=== PATIENT | female | born 1945 | race African-American/Black ===

== ENCOUNTER → 2018-09-23 | Outpatient (CLI) | payer OTHER ==
[~2018-09-23] MED LIST: BACLOFEN 10 MG10 MG; BACLOFEN 10MG T10 M1 PO; BACLOFEN 10MG T10 MG PO; BREO ELLIPTA 11 EACH INH; CELEXA 20 MG TA20 M1 PO; CELEXA 20 MG TA20 MG PO; GRALISE600 MG; LEVAQUIN 500 M500 M2 PO; LISINOPRIL-HCT1 EAC1 PO; MOBIC15 MG PO; NEURONTIN 300300 M1; NEURONTIN600 MG PO; PERCOCET 5-3251 EACH PO; PREDNISONE10 MG PO; PROAIR HFA8.5 GM INH; PROTONIX40 M1 PO; SIMVASTATIN20 MG PO; VITAMIN D1000 UNI1 PO; ZESTRIL10 MG
--- NOTE | ~2018-09-23 | PAINCON ---
[address] [address] PAIN MANAGEMENT CONSULTATION Name: DIANA KULKARNI Room: [facility] Lopez.#: [id number] Admission: 09/23/18 Attend Phys: Lor Chery MD Discharge: Date of : 45 Report #: [id number] THIS REPORT FOR: //name// CC: George Chery DATE OF SERVICE: 09/23/2018 CHIEF COMPLAINT: Sciatic nerve pain. HISTORY OF PRESENT ILLNESS: The patient is a 72-year-old female who has been referred to the Pain Clinic for evaluation of chronic pain. The patient has been having pain in the lower portion of her back, inner thigh and notes a severe aching discomfort in the L5-S1 area on her left side. She states that she is not sure that anything makes it better. Pain is exacerbated by sitting, standing, walking and describes it as continuous, steady, constant, burning, shooting, aching, crushing, pulling, throbbing, gnawing, sharp, stabbing and tender discomfort. Rates it as a 10/10 at this juncture. She has had back surgery. She has had rods and pedicle screws placed. Feels that her pain has continued to worsen activities of daily living are quite problematic at this juncture. Surgery was about 7 years ago. The patient's "feels she has never been the same since the surgery." Has a constant numbness and tingling in her left leg. Notes some weakness in her left leg. Had physical therapy a number of years ago. Has used Percocet and Mobic. ALLERGIES: No known drug allergies. CURRENT MEDICATIONS: Albuterol 4 times daily 2 puffs shortness of breath, baclofen 10 mg t.i.d., vitamin D 1000 units, Celexa 20 mg, Breo Ellipta 100/25, Neurontin 600 mg t.i.d., lisinopril/hydrochlorothiazide 20/12.5, Mobic 15 mg, Percocet 5/325 q.i.d., Protonix 40 mg, simvastatin 20 mg. PAST MEDICAL HISTORY: 1. Sciatica, left osteoarthrosis, multiple sites. 2. Gastroesophageal reflux disease. 3. Spinal stenosis. 4. Depression/anxiety. 5. Hypercholesterolemia. 6. Hypertension. 7. Left L5-S1 and L4-L5 nerve root irritation with straight leg raise positive. Forward bending 35 degrees cause some increased pain in the low back area with pain radiating down to the leg. PAST SURGICAL HISTORY: Back surgery with rods and pedicle screws. SOCIAL HISTORY: She is retired, worked [employer] for 35 years, stopped in [place] [address] PAIN MANAGEMENT CONSULTATION Name: DIANA KULKARNI ANN Room: [facility] Menard#: [id number] Admission: 09/23/18 Attend Phys: Lor Chery MD Discharge: Date of : 45 Report #: [id number] REVIEW OF SYSTEMS: Wears glasses, voice changes, shortness of breath with walking, frequent cough, hot cold intolerance, joint pain, joint stiffness, weakness of muscles and joints, muscle pain and cramps, back pain, difficulty walking, change in nails and hair. LABORATORY DATA: Lumbar spine exam 08/31/2018, L-spine report, comparison was made with the MRI lumbar spine 07/05/2014: 1. L1-L2 a mild broad-based disk bulge is present. Mild bilateral facet hypertrophy is present. Ligamentum flavum thickening present. No spinal canal stenosis or neural foraminal stenosis. 2. L2-L3 disk osteophyte complexes present. Effacing the ventral epidural space, moderate bilateral facet hypertrophy is present. Ligamentum flavum thickening present. [id number] spinal canal stenosis is present at L2-L3. Stenosis is slightly worse when compared to the previous MRI. Mild bilateral neural foraminal stenosis present. 3. L3-L4, no disk bulge is present. Artifact from pedicle screw is present. No spinal canal stenosis. Moderate to severe neural foraminal stenosis identified. Imaging of the neural foramen distorted by artifact from pedicle screw. 4. L4-L5, no disk bulge is present. Pedicle screw sore present. No spinal canal stenosis. Images of the neural foramen are distorted by artifact from the pedicle screw. Moderate left neural foraminal stenosis may be present at L4-L5. Neural foramen similar in appearance when compared to the previous MRI. 5. L5-S1 a broad-based disk bulge is present. Severe bilateral facet hypertrophy is present. Mild spinal canal stenosis present. Mild neural foraminal stenosis present. PAIN CLINIC ASSESSMENT/PQRS: 1. History of osteoarthritic changes in the low back area. 2. The patient is not being treated for rheumatoid arthritis. 3. Height 5 feet 3 inches, weight 146 pounds, BMI is 25. 4. Vital signs: Blood pressure 124/74, heart rate 61, respiratory rate 16, room air saturation 93%. Temperature 98.1. 5. Pain intensity 8/10. 6. Fall history: The patient has not fallen in the last 3 months. 7. Blood thinner. The patient is not on a blood thinning medication. 8. Hypertension. The patient has been treated for hypertension. 9. Opioids greater than 6 weeks. The patient is using Percocet 5 mg tablets to help control the pain. 10. Risk assessment tool, low for opioid use. 11. Functional assessment tool. 12. Recreational drug use. The patient denies use of recreational drugs. 13. Tobacco: The patient does smoke cigarettes. I have discussed the benefits of smoking cessation. 14. Alcohol: The patient denies significant use [place] [address] PAIN MANAGEMENT CONSULTATION Name: DIANA KULKARNI [id number] Admission: 09/23/18 Attend Phys: Lor Chery MD Discharge: Date of : 45 Report #: [id number] PHYSICAL EXAMINATION: GENERAL: The patient is a well-developed, somewhat small female. She is accompanied by her significant other. Complains of pain and discomfort in the low back area. Has pain in the right hip area as well as pain radiating down into the left leg with numbness in the great toe. IMPRESSION: Left L5-S1 and L4-L5 nerve root irritation with straight leg raise positive. Forward bending 35 degrees cause some increased pain in the low back area with pain radiating down to the leg. RECOMMENDATIONS: We discussed treatment options with the patient. Risks and benefits of an epidural steroid injection were discussed. The patient has had significant amounts of surgery in her low back area. She has rods, screws in place. We have discussed the risk and benefits of a transforaminal approach. They include but are not limited to infection, worsening of pain, no improvement in pain, nerve damage and the patient elects to proceed. PROCEDURE NOTE: The patient was taken to the procedure area. Fluoroscopy using anterior, posterior as well as lateral viewing were implemented. The patient's back was sterilely prepped with a Betadine solution and allowed to dry. The left L4-L5 area as well as the left L5-S1 area were identified. A 0.25% bupivacaine was infiltrated at the L4-L5 area as well as at the L5-S1 area as well as the L4-L5 area. A 20-gauge spinal needle was then used using a transforaminal approach at the L4-L5 interspace. After appropriate placement, a total of 80 mg Depo-Medrol was injected. The L5-S1 area was treated in a like fashion. After appropriate placement of the needle at L5-S1 a total of 80 mg Depo-Medrol was injected. The patient tolerated the procedure well. She remained in the Pain Clinic for an appropriate amount of time. She will follow up in the future as needed. We would like to thank you for letting us participate in her care. We hope she continues to improve. By: [id number]. Jonny Chery MD /jac
== END | disposition home or self-care (01) ==
LOC: M.PC 10:30
DX: M54.16 Radiculopathy, lumbar region (principal); M48.061 Spinal stenosis, lumbar region without neurogenic claudication; M54.32 Sciatica, left side; M19.90 Unspecified osteoarthritis, unspecified site; I10 Essential (primary) hypertension; K21.9 Gastro-esophageal reflux disease without esophagitis; F32.9 Major depressive disorder, single episode, unspecified; F41.9 Anxiety disorder, unspecified; E78.00 Pure hypercholesterolemia, unspecified; F17.210 Nicotine dependence, cigarettes, uncomplicated; Z79.899 Other long term (current) drug therapy; Z98.890 Other specified postprocedural states